=== PATIENT | male | born 1960 | race Caucasian/White ===

== ENCOUNTER 2020-04-11 17:44 | Inpatient (IN) | payer OTHER ==
[~2020-04-11] VITALS: Ht 172.7 cm; Wt 86.4 kg
[2020-04-11 18:33] LABS: GLUCOSE,POINT OF CARE 153 MG/DL (70-110)
[2020-04-11] MEDS ORDERED: FURO20 PO (18:39)
[2020-04-11] MEDS ORDERED: METF-960 PO (18:39)
[2020-04-11] MEDS ORDERED: INSULIN SQ (18:39)
[2020-04-11] MEDS ORDERED: LISI-661 PO (18:39)
[2020-04-11] MEDS ORDERED: ASPI-728 PO (18:39)
[2020-04-11] MEDS ORDERED: MORPHINE SULFATE 2 MG/ML SYRINGE IVP ONE (18:45)
[2020-04-11] MEDS ORDERED: 0.9% SODIUM CHLORIDE 10 ML SYRINGE IVP PRN (18:45)
[2020-04-11 20:14] LABS: ALANINE AMINOTRANSFERASE 43 U/L (12-78); ALBUMIN 2.7 g/dL (3.4-5.0); ALKALINE PHOSPHATASE 133 U/L (46-116); ANION GAP 8 mmol/L (8-16); ASPARTATE AMINOTRANSFERASE 43 U/L (15-37); BILIRUBIN,TOTAL 0.3 mg/dL (0.1-1.0); CALCIUM, TOTAL 8.1 mg/dL (8.8-10.5); CARBON DIOXIDE 25 mmol/L (22-29); CHLORIDE 106 mmol/L (98-107); CREATININE 0.88 mg/dL (0.60-1.30); GLOMERULAR FILTR. RATE CALC > 60 mL/min (>60); GLUCOSE,RANDOM 110 mg/dL (70-110); LIPASE 343 U/L (73-393); POTASSIUM 4.2 mmol/L (3.5-5.1); SODIUM SERUM 139 mmol/L (136-145); TOTAL PROTEIN, SERUM 6.5 g/dL (6.4-8.2); UREA NITROGEN, BLOOD 15 mg/dL (7-18)
[2020-04-11 20:23] LABS: B-TYPE NATRIURETIC PEPTIDE 27 pg/mL (0-100); EOSINOPHILS % (AUTO) 0.9 % (1.0-6.0); HEMATOCRIT 21.4 % (41-53); LYMPHOCYTES # (AUTO) 0.6 K/uL (1.0-4.8); LYMPHOCYTES % (AUTO) 13.4 % (22.0-44.0); MEAN CORPUSCULAR HEMOGLOBIN 28.1 pg (26.0-34.0); MEAN CORPUSCULAR HGB CONC 31.6 G/dL (31.0-37.0); MEAN CORPUSCULAR VOLUME 89 fL (80-100); MONOCYTES # (AUTO) 0.4 K/uL (0.1-1.0); NEUTROPHILS # (AUTO) 3.3 K/uL (1.8-7.7); NEUTROPHILS % (AUTO) 75.7 % (40.0-70.0); PLATELET COUNT (AUTO) 108 K/uL (150-450); RED CELL DISTRIBUTION WIDTH 17.9 % (11.5-14.5)
[2020-04-11 20:37] LABS: HEMOGLOBIN 6.8 g/dL (13.5-17.5)
[2020-04-11 20:52] LABS: INR 1.1 (0.9-1.1); PROTHROMBIN TIME 11.4 SEC (9.4-11.6)
[2020-04-11 20:54] LABS: COVID AG,FIA SOURCE NASOPHARYNGEAL
[2020-04-11 20:56] LABS: SPECIMENTYPE,BODY FLUID ASCITES
[2020-04-11] MEDS ORDERED: ONDANSETRON HCL 4 MG/2 ML VIAL IVP PRN ×2 (22:00→22:45)
[2020-04-11] MEDS ORDERED: CefTRIAXone SODIUM 2 GM in DEXTROSE 5%-WATER 50 ML IV ONE (22:00)
[2020-04-11] MEDS ORDERED: ACETAMINOPHEN 325 MG TABLET PO PRN ×2 (22:00→22:45)
[2020-04-11 22:13] LABS: APPEARANCE,SPUN,BODY FLUID CLEAR (CLEAR); APPEARANCE,UNSPUN,BODY FLUID CLOUDY (CLEAR); BASOPHILS,BODY FLUID 0 %; COLOR,BODY FLUID LT YELLOW (LT YELLOW); EOSINOPHILS,BF (ANAL) 0 %; LYMPHOCYTES,BODY FLUID 37 %; MONOCYTES,BODY FLUID 6 %; NEUTROPHILS,BODY FLUID 57 %; TOTAL VOLUME,BODY FLUID 60 mL; WBC, BODY FLUID 50 /cu. mm.
[2020-04-11 22:40] LABS: LACTIC ACID 0.4 mmol/L (0.4-2.0)
[2020-04-11] MEDS: PANTOPRAZOLE SODIUM 40 MG/VIAL IVP SCH (22:45)
[2020-04-12] VITALS (11 sets, daily range): BP systolic 116–157; BP diastolic 67–84
[2020-04-12] MEDS ORDERED: SODIUM CHLORIDE 0.9% 100 ML ONE (00:02)
[2020-04-12] MEDS ORDERED: IOVERSOL 350 MG/ML 100 ML VIAL ONE (00:02)
[2020-04-12] MEDS ORDERED: DEXTROSE 50%-WATER 25 GM/50 ML SYRINGE IVP PRN ×2 (06:00)
[2020-04-12] MEDS: DEXTROSE 5%-0.9% SODIUM CHL 1,000 ML IV SCH (06:11)
[2020-04-12 07:41] LABS: HEMATOCRIT 21.9 % (41-53); HEMOGLOBIN 7.1 g/dL (13.5-17.5)
[2020-04-12] MEDS: FUROSEMIDE 20 MG TABLET PO SCH (08:53)
[2020-04-12] MEDS: PANTOPRAZOLE SODIUM 40 MG/VIAL IVP SCH ×2 (08:53→21:35)
[2020-04-12] MEDS: SPIRONOLACTONE 25 MG TABLET PO SCH ×2 (08:53→21:35)
[2020-04-12] MEDS ORDERED: SPIRONOLACTONE 25 MG TABLET PO SCH (09:00)
[2020-04-12] MEDS ORDERED: PANTOPRAZOLE SODIUM 80 MG in SODIUM CHLORIDE 0.9% 100 ML IV SCH (12:15)
[2020-04-12] MEDS ORDERED: OCTREOTIDE ACETATE 500 MCG in DEXTROSE 5%-WATER 97.5 ML IV SCH (12:15)
[2020-04-12 16:22] LABS: GLUCOMETER DEV NAME(LOC) 6N.2; GLUCOSE,POINT OF CARE 69 MG/DL (70-110)
[2020-04-12 16:22] LABS: GLUCOMETER DEV NAME(LOC) 6N.2; GLUCOSE,POINT OF CARE 200 MG/DL (70-110)
[2020-04-12 16:23] LABS: GLUCOMETER DEV NAME(LOC) 6N.2; GLUCOSE,POINT OF CARE 75 MG/DL (70-110)
[2020-04-12 19:20] LABS: GLUCOMETER DEV NAME(LOC) 6S.1; GLUCOSE,POINT OF CARE 110 MG/DL (70-110)
[2020-04-12] MEDS ORDERED: SODIUM CHLORIDE 0.9% 250 ML IV ONE (21:59)
[2020-04-12] MEDS: CefTRIAXone 1 GM/DEXTROSE 50 ML IV SCH (22:03)
[2020-04-13 00:21] LABS: GLUCOMETER DEV NAME(LOC) 6S.1; GLUCOSE,POINT OF CARE 82 MG/DL (70-110)
[2020-04-13 05:35] VITALS: BP 114/69
[2020-04-13] MEDS ORDERED: PROPOFOL 1% 20 ML VIAL IVP ONE (06:53)
[2020-04-13 07:31] LABS: BASOPHILS % (AUTO) 1.1 % (0.0-2.0); EOSINOPHILS % (AUTO) 5.1 % (1.0-6.0); HEMATOCRIT 23.6 % (41-53); HEMOGLOBIN 7.5 g/dL (13.5-17.5); LYMPHOCYTES # (AUTO) 0.9 K/uL (1.0-4.8); LYMPHOCYTES % (AUTO) 27.5 % (22.0-44.0); MEAN CORPUSCULAR HEMOGLOBIN 28.1 pg (26.0-34.0); MEAN CORPUSCULAR HGB CONC 31.6 G/dL (31.0-37.0); MEAN CORPUSCULAR VOLUME 89 fL (80-100); MONOCYTES # (AUTO) 0.4 K/uL (0.1-1.0); MONOCYTES % (AUTO) 11.1 % (2.0-9.0); NEUTROPHILS # (AUTO) 1.8 K/uL (1.8-7.7); NEUTROPHILS % (AUTO) 55.2 % (40.0-70.0); RED BLOOD CELL COUNT(AUTO) 2.66 MIL/uL (4.50-5.90); RED CELL DISTRIBUTION WIDTH 17.5 % (11.5-14.5)
[2020-04-13 07:32] LABS: PLATELET COUNT (AUTO) 97 K/uL (150-450)
[2020-04-13 08:19] VITALS: BP 125/82
[2020-04-13] MEDS: PANTOPRAZOLE SODIUM 40 MG/VIAL IVP SCH ×2 (08:41→20:30)
[2020-04-13] MEDS: SPIRONOLACTONE 25 MG TABLET PO SCH ×2 (08:41→20:30)
[2020-04-13] MEDS: FUROSEMIDE 20 MG TABLET PO SCH (08:41)
[2020-04-13] MEDS: INSULIN LISPRO 100 UNITS/ML SQ PRN ×2 (11:51→20:39)
[2020-04-13] MEDS: DEXTROSE 5%-0.9% SODIUM CHL 1,000 ML IV SCH ×2 (11:54→12:17)
[2020-04-13 12:08] LABS: GLUCOMETER DEV NAME(LOC) 6N.2; GLUCOSE,POINT OF CARE 98 MG/DL (70-110)
[2020-04-13 12:09] LABS: GLUCOMETER DEV NAME(LOC) 6N.2; GLUCOSE,POINT OF CARE 177 MG/DL (70-110)
[2020-04-13 19:55] VITALS: BP 121/65
[2020-04-13] MEDS: CefTRIAXone 1 GM/DEXTROSE 50 ML IV SCH (23:28)
[2020-04-13 23:29] LABS: GLUCOMETER DEV NAME(LOC) 6N.2; GLUCOSE,POINT OF CARE 225 MG/DL (70-110)
[2020-04-13 23:56] VITALS: BP 127/65
[2020-04-14 00:08] LABS: GLUCOMETER DEV NAME(LOC) 6S.1; GLUCOSE,POINT OF CARE 219 MG/DL (70-110)
[2020-04-14] MEDS: DEXTROSE 5%-0.9% SODIUM CHL 1,000 ML IV SCH ×2 (02:18→17:01)
[2020-04-14 04:30] VITALS: BP 114/56
[2020-04-14] MEDS: INSULIN LISPRO 100 UNITS/ML SQ PRN ×4 (05:47→20:34)
[2020-04-14 06:16] LABS: GLUCOMETER DEV NAME(LOC) 6N.1; GLUCOSE,POINT OF CARE 197 MG/DL (70-110)
[2020-04-14 06:18] LABS: EOSINOPHILS % (AUTO) 3.7 % (1.0-6.0); HEMATOCRIT 22.8 % (41-53); HEMOGLOBIN 7.2 g/dL (13.5-17.5); LYMPHOCYTES % (AUTO) 25.1 % (22.0-44.0); MEAN CORPUSCULAR HEMOGLOBIN 27.8 pg (26.0-34.0); MEAN CORPUSCULAR HGB CONC 31.7 G/dL (31.0-37.0); MEAN CORPUSCULAR VOLUME 88 fL (80-100); MONOCYTES # (AUTO) 0.4 K/uL (0.1-1.0); MONOCYTES % (AUTO) 10.4 % (2.0-9.0); NEUTROPHILS # (AUTO) 2.3 K/uL (1.8-7.7); NEUTROPHILS % (AUTO) 59.8 % (40.0-70.0); PLATELET COUNT (AUTO) 86 K/uL (150-450); RED BLOOD CELL COUNT(AUTO) 2.61 MIL/uL (4.50-5.90); RED CELL DISTRIBUTION WIDTH 17.4 % (11.5-14.5)
[2020-04-14 06:58] LABS: ALANINE AMINOTRANSFERASE 35 U/L (12-78); ALBUMIN 2.3 g/dL (3.4-5.0); ALKALINE PHOSPHATASE 110 U/L (46-116); ANION GAP 5 mmol/L (8-16); ASPARTATE AMINOTRANSFERASE 24 U/L (15-37); BILIRUBIN,TOTAL 0.3 mg/dL (0.1-1.0); CALCIUM, TOTAL 7.6 mg/dL (8.8-10.5); CARBON DIOXIDE 26 mmol/L (22-29); CHLORIDE 105 mmol/L (98-107); CREATININE 1.06 mg/dL (0.60-1.30); GLOMERULAR FILTR. RATE CALC > 60 mL/min (>60); GLUCOSE,RANDOM 217 mg/dL (70-110); POTASSIUM 3.7 mmol/L (3.5-5.1); SODIUM SERUM 136 mmol/L (136-145); TOTAL PROTEIN, SERUM 5.5 g/dL (6.4-8.2); UREA NITROGEN, BLOOD 13 mg/dL (7-18)
[2020-04-14 08:24] VITALS: BP 138/75
[2020-04-14] MEDS: SPIRONOLACTONE 25 MG TABLET PO SCH ×2 (09:35→20:26)
[2020-04-14] MEDS: FUROSEMIDE 20 MG TABLET PO SCH (09:35)
[2020-04-14] MEDS: PANTOPRAZOLE SODIUM 40 MG/VIAL IVP SCH ×2 (09:35→20:26)
[2020-04-14 14:35] LABS: GLUCOMETER DEV NAME(LOC) 6N.2; GLUCOSE,POINT OF CARE 195 MG/DL (70-110)
[2020-04-14 15:26] VITALS: BP 121/65
[2020-04-14 19:59] VITALS: BP 126/75
[2020-04-14] MEDS: CefTRIAXone 1 GM/DEXTROSE 50 ML IV SCH (21:53)
[2020-04-15 01:50] LABS: GLUCOMETER DEV NAME(LOC) 6N.2; GLUCOSE,POINT OF CARE 160 MG/DL (70-110)
[2020-04-15 01:50] LABS: GLUCOMETER DEV NAME(LOC) 6N.2; GLUCOSE,POINT OF CARE 282 MG/DL (70-110)
[2020-04-15 04:44] VITALS: BP 126/67
[2020-04-15] MEDS: DEXTROSE 5%-0.9% SODIUM CHL 1,000 ML IV SCH ×2 (05:23→21:51)
[2020-04-15] MEDS: INSULIN LISPRO 100 UNITS/ML SQ PRN ×3 (05:26→16:41)
[2020-04-15 06:12] LABS: GLUCOMETER DEV NAME(LOC) 6S.1; GLUCOSE,POINT OF CARE 215 MG/DL (70-110)
[2020-04-15 06:27] LABS: BASOPHILS % (AUTO) 0.7 % (0.0-2.0); EOSINOPHILS % (AUTO) 3.8 % (1.0-6.0); HEMATOCRIT 22.9 % (41-53); HEMOGLOBIN 7.2 g/dL (13.5-17.5); LYMPHOCYTES # (AUTO) 1.1 K/uL (1.0-4.8); LYMPHOCYTES % (AUTO) 28.6 % (22.0-44.0); MEAN CORPUSCULAR HEMOGLOBIN 27.1 pg (26.0-34.0); MEAN CORPUSCULAR HGB CONC 31.5 G/dL (31.0-37.0); MEAN CORPUSCULAR VOLUME 86 fL (80-100); MONOCYTES # (AUTO) 0.4 K/uL (0.1-1.0); MONOCYTES % (AUTO) 9.4 % (2.0-9.0); NEUTROPHILS # (AUTO) 2.1 K/uL (1.8-7.7); NEUTROPHILS % (AUTO) 57.5 % (40.0-70.0); PLATELET COUNT (AUTO) 77 K/uL (150-450); RED BLOOD CELL COUNT(AUTO) 2.66 MIL/uL (4.50-5.90); RED CELL DISTRIBUTION WIDTH 17.7 % (11.5-14.5)
[2020-04-15 06:38] LABS: ALANINE AMINOTRANSFERASE 26 U/L (12-78); ALBUMIN 2.2 g/dL (3.4-5.0); ALKALINE PHOSPHATASE 107 U/L (46-116); ANION GAP 1 mmol/L (8-16); ASPARTATE AMINOTRANSFERASE 20 U/L (15-37); BILIRUBIN,TOTAL 0.3 mg/dL (0.1-1.0); CALCIUM, TOTAL 7.7 mg/dL (8.8-10.5); CARBON DIOXIDE 27 mmol/L (22-29); CHLORIDE 107 mmol/L (98-107); CREATININE 1.12 mg/dL (0.60-1.30); GLOMERULAR FILTR. RATE CALC > 60 mL/min (>60); GLUCOSE,RANDOM 205 mg/dL (70-110); POTASSIUM 3.6 mmol/L (3.5-5.1); SODIUM SERUM 135 mmol/L (136-145); TOTAL PROTEIN, SERUM 5.5 g/dL (6.4-8.2); UREA NITROGEN, BLOOD 13 mg/dL (7-18)
[2020-04-15 08:25] VITALS: BP 126/66
[2020-04-15] MEDS: FUROSEMIDE 20 MG TABLET PO SCH (08:54)
[2020-04-15] MEDS: PANTOPRAZOLE SODIUM 40 MG/VIAL IVP SCH ×2 (08:54→21:50)
[2020-04-15] MEDS: SPIRONOLACTONE 25 MG TABLET PO SCH ×2 (08:54→21:50)
[2020-04-15 13:12] LABS: GLUCOMETER DEV NAME(LOC) 6N.2; GLUCOSE,POINT OF CARE 237 MG/DL (70-110)
[2020-04-15 17:23] LABS: GLUCOMETER DEV NAME(LOC) 6N.2; GLUCOSE,POINT OF CARE 193 MG/DL (70-110)
[2020-04-15 20:20] VITALS: BP 122/65
[2020-04-15] MEDS: CefTRIAXone 1 GM/DEXTROSE 50 ML IV SCH (21:50)
[2020-04-15 22:30] LABS: GLUCOMETER DEV NAME(LOC) 6S.1; GLUCOSE,POINT OF CARE 225 MG/DL (70-110)
[2020-04-16 04:53] VITALS: BP 124/52
[2020-04-16] MEDS: INSULIN LISPRO 100 UNITS/ML SQ PRN ×2 (06:22→12:16)
[2020-04-16 06:58] LABS: BASOPHILS % (AUTO) 0.8 % (0.0-2.0); EOSINOPHILS % (AUTO) 4.4 % (1.0-6.0); HEMATOCRIT 23.1 % (41-53); HEMOGLOBIN 7.3 g/dL (13.5-17.5); LYMPHOCYTES % (AUTO) 29.3 % (22.0-44.0); MEAN CORPUSCULAR HGB CONC 31.7 G/dL (31.0-37.0); MEAN CORPUSCULAR VOLUME 85 fL (80-100); MONOCYTES # (AUTO) 0.3 K/uL (0.1-1.0); MONOCYTES % (AUTO) 10.5 % (2.0-9.0); NEUTROPHILS # (AUTO) 1.8 K/uL (1.8-7.7); PLATELET COUNT (AUTO) 72 K/uL (150-450); RED BLOOD CELL COUNT(AUTO) 2.71 MIL/uL (4.50-5.90); RED CELL DISTRIBUTION WIDTH 17.6 % (11.5-14.5)
[2020-04-16 07:16] LABS: ALANINE AMINOTRANSFERASE 30 U/L (12-78); ALBUMIN 2.4 g/dL (3.4-5.0); ALKALINE PHOSPHATASE 103 U/L (46-116); ANION GAP 7 mmol/L (8-16); ASPARTATE AMINOTRANSFERASE 20 U/L (15-37); BILIRUBIN,TOTAL 0.3 mg/dL (0.1-1.0); CALCIUM, TOTAL 7.8 mg/dL (8.8-10.5); CARBON DIOXIDE 27 mmol/L (22-29); CHLORIDE 107 mmol/L (98-107); CREATININE 1.05 mg/dL (0.60-1.30); GLOMERULAR FILTR. RATE CALC > 60 mL/min (>60); GLUCOSE,RANDOM 188 mg/dL (70-110); POTASSIUM 3.7 mmol/L (3.5-5.1); SODIUM SERUM 141 mmol/L (136-145); TOTAL PROTEIN, SERUM 5.7 g/dL (6.4-8.2); UREA NITROGEN, BLOOD 15 mg/dL (7-18)
[2020-04-16 08:16] LABS: GLUCOMETER DEV NAME(LOC) 6S.1; GLUCOSE,POINT OF CARE 185 MG/DL (70-110)
[2020-04-16 08:20] VITALS: BP 123/72
[2020-04-16] MEDS: FUROSEMIDE 20 MG TABLET PO SCH (08:42)
[2020-04-16] MEDS: SPIRONOLACTONE 25 MG TABLET PO SCH (08:42)
[2020-04-16] MEDS: PANTOPRAZOLE SODIUM 40 MG/VIAL IVP SCH (08:42)
[2020-04-16] MEDS ORDERED: GlyBURIDE 5 MG TABLET PO ONE (12:00)
[2020-04-16] MEDS ORDERED: SPIR25 PO (14:10)
[2020-04-16] MEDS ORDERED: GLYBURIDE PO (14:10)
[2020-04-16] MEDS ORDERED: FURO-152 PO (14:10)
[2020-04-16 16:46] LABS: GLUCOMETER DEV NAME(LOC) 6S.1; GLUCOSE,POINT OF CARE 263 MG/DL (70-110)
[2020-04-17] MEDS ORDERED: GlyBURIDE 5 MG TABLET PO SCH (08:00)
== END 2020-04-16 14:45 | DRG 377 ==
LOC: EMS 17:44 → 6S 21:56 → 6N 04-12 08:00
PROVIDERS: ADMIT Internal Medicine; ATTEND Internal Medicine
PROC: 3E1M38Z Irrigation of Peritoneal Cavity using Irrigating Substance, Percutaneous Approach (ICD-10-PCS; 2020-04-11)
PROC: 30233N1 Transfusion of Nonautologous Red Blood Cells into Peripheral Vein, Percutaneous Approach (ICD-10-PCS; 2020-04-12)
PROC: 0DB68ZX Excision of Stomach, Via Natural or Artificial Opening Endoscopic, Diagnostic (ICD-10-PCS; principal; 2020-04-12 13:30)
DX: K26.4 Chronic or unspecified duodenal ulcer with hemorrhage (principal); U07.1 COVID-19; D62 Acute posthemorrhagic anemia; K76.6 Portal hypertension; R18.8 Other ascites; I85.10 Secondary esophageal varices without bleeding; D69.6 Thrombocytopenia, unspecified; E11.9 Type 2 diabetes mellitus without complications; K31.89 Other diseases of stomach and duodenum; B18.2 Chronic viral hepatitis C; F10.20 Alcohol dependence, uncomplicated; K74.60 Unspecified cirrhosis of liver; E78.00 Pure hypercholesterolemia, unspecified; E78.5 Hyperlipidemia, unspecified; I10 Essential (primary) hypertension; Z79.4 Long term (current) use of insulin; Z87.891 Personal history of nicotine dependence; Z79.899 Other long term (current) drug therapy; Z79.82 Long term (current) use of aspirin; Z90.49 Acquired absence of other specified parts of digestive tract
CPT/HCPCS: 74177; 76700; 82042; 82271; 82945; 83605; 83615; 84145; 84157; 85014; 85018; 86850; 86900; 86901; 86923; 87040; 87426; 89051; 93005; C9113; J0696; J2270; J2354; J2704; J7042; J7050; J7060; P9016; 36415-L1; 36415-TC; 71045-TC